=== PATIENT | female | born 1935 | race Caucasian/White ===

== ENCOUNTER 2020-02-02 14:59 | Inpatient (IN) | payer OTHER ==
[~2020-02-02] VITALS: Ht 162.6 cm; Wt 61.2 kg
[2020-02-02 15:14] VITALS: BP 101/53
[2020-02-02 16:01] LABS: BASOPHILS # (AUTO) 0.1 K/uL (0.00-0.22); EOSINOPHILS # (AUTO) 0.1 K/uL (0-0.4); EOSINOPHILS % (AUTO) 1.4 % (0.0-4.0); HEMATOCRIT 38.2 % (36-48); HEMOGLOBIN 12.5 g/dL (12.0-16.0); MEAN CORPUSCULAR HEMOGLOBIN 31 pg (27-31); MEAN CORPUSCULAR HGB CONC 33 g/dL (33-37); MEAN CORPUSCULAR VOLUME 93.3 fL (80-94); MONOCYTES # (AUTO) 0.5 K/uL (0.8-1.0); MONOCYTES % (AUTO) 7.3 % (1.7-9.3); NEUTROPHILS # (AUTO) 4.9 K/uL (1.8-7.7); NEUTROPHILS % (AUTO) 75.3 % (42.2-75.2); PLATELET COUNT (AUTO) 223 K/uL (140-450); RED BLOOD CELL COUNT(AUTO) 4.09 MIL/uL (4.20-5.40); RED CELL DISTRIBUTION WIDTH 13.7 % (11.6-13.7); WHITE BLOOD COUNT (AUTO) 6.5 K/uL (4.8-10.8)
--- NOTE | 2020-02-02 16:05 | NUR ---
DAUGHTER MICHELLE MCGREGOR [phone] FOR UPDATES ON PATIENT.
--- NOTE | 2020-02-02 16:10 | NUR ---
GILL FROM [facility] FOR GENERALIZED WEAKNESS, COUGH, LOSS OF APPETITE X 1 WEEK. AOX 1 ONLY LAST NAME. MED HX: HTN, ALZCHEIMER, CHEST SURGERY.
[2020-02-02 16:25] LABS: ANION GAP 9.9 (8-16); CARBON DIOXIDE 29.5 mmol/L (21-32); CHLORIDE 101 mmol/L (98-107); CREATININE 0.9 mg/dL (0.6-1.3); GLUCOSE 98 mg/dL (74-106); POTASSIUM 3.4 mmol/L (3.5-5.1); SODIUM SERUM 137 mmol/L (136-145); UREA NITROGEN, BLOOD 7 mg/dL (7-18)
[2020-02-02 16:32] LABS: ALBUMIN 3.2 g/dL (3.4-5.0); ASPARTATE AMINOTRANSFERASE 22 U/L (15-37); TOTAL BILIRUBIN 0.4 mg/dL (0.0-1.0)
[2020-02-02 16:36] LABS: BILIRUBIN,URINE NEGATIVE (NEGATIVE); BLOOD, URINE 2+ (NEGATIVE); COLOR,URINE ORANGE (YELLOW); LEUKOCYTE ESTERASE ,URINE TRACE (NEGATIVE); NITRITE, URINE NEGATIVE (NEGATIVE); PH,URINE 6.5 (5.0-9.0); UGLUCOSE NEGATIVE (NEGATIVE)
[2020-02-02 16:40] LABS: APPEARANCE,URINE HAZY (CLEAR)
[2020-02-02 16:55] LABS: RBC,URINE 0-5 /HPF (0-5); WBC,URINE 0-5 /HPF (0-5)
[2020-02-02] MEDS ORDERED: NACL 0.9% 1,000 ML IV ONE (17:10)
[2020-02-02] MEDS ORDERED: cefTRIAXone 1,000 MG VIAL ONE (17:15)
[2020-02-02] MEDS ORDERED: MORPHINE SULFATE 4 MG/ML SYR IVP ONE (18:50)
--- NOTE | 2020-02-02 19:12 | NUR ---
Pt report given to JESUSITA STERN. Transfer of care at this time.
--- NOTE | 2020-02-02 19:27 | NUR ---
RECEIVED REPORT FROM LEENA JHAVERI.
--- NOTE | 2020-02-02 19:27 | NUR ---
PT GIVEN 2L O2 VIA NC.
[2020-02-02] MEDS ORDERED: POTASSIUM CHLORIDE 10 MEQ TABER PO ONE ×2 (19:35→22:04)
[2020-02-02] MEDS ORDERED: ALBUTEROL SULFATE/IPRATROPIU 3 ML SOL IH PRN (19:35)
[2020-02-02] MEDS ORDERED: ACETAMINOPHEN 325 MG TAB PO PRN (19:35)
[2020-02-02] MEDS ORDERED: HYDROcodone/APAP 7.5/325 MG 1 TAB PO PRN (19:35)
[2020-02-02] MEDS ORDERED: ONDANSETRON 4 MG/2 ML VIAL IVP PRN (19:35)
[2020-02-02 20:30] VITALS: BP 115/75
--- NOTE | 2020-02-02 20:30 | NUR ---
RECEIVED BEDSIDE REPORT FROM ER NURSE. PT CAME IN [facility], NOT AMBULATORY. BREATHING EVEN AND UNLABORED WITH 2LPM O2 VIA NC. SKIN INTACT, WARM AND DRY TO TOUCH. IV SITE ON RH 22G, LAC 20G, PATENT, INTACT AND ASYMPTOMATIC. DX: GENERALIZED WEAKNESS. MRSA SWAB DONE, VS CHECKED, BED IN LOW POSITION, CALL LIGHT WITHIN REACH.
--- NOTE | 2020-02-02 20:32 | NUR ---
Patient will be admitted to care of DR SOLER. Admited to M/S. Will go to room 121B. Belongings list completed. Report to LEENA DE LA ROSA.
[2020-02-02 20:34] LABS: PROTHROMBIN TIME 10.1 secs (10.8-13.4)
[2020-02-02 20:37] LABS: FREE T4 (FREE THYROXINE) 1.33 ng/dL (0.76-1.46); PHOSPHORUS 3.7 mg/dL (2.5-4.9); THYROID STIMULATING HORMONE 2.17 uIU/mL (0.34-3.74)
[2020-02-02] MEDS ORDERED: MAGN400S60 PO (20:42)
[2020-02-02] MEDS ORDERED: FURO-570 PO (20:42)
[2020-02-02] MEDS ORDERED: POTA10TE30 PO (20:42)
[2020-02-02] MEDS ORDERED: MULT-153 PO (20:42)
[2020-02-02] MEDS ORDERED: ASPI-1822 PO (20:42)
[2020-02-02] MEDS ORDERED: MIRT15TA PO (20:42)
[2020-02-02] MEDS ORDERED: ASCO500T45 PO (20:42)
[2020-02-02] MEDS ORDERED: MEMA10TA PO (20:42)
[2020-02-02] MEDS ORDERED: SENN-74 PO (20:42)
[2020-02-02] MEDS ORDERED: CYAN100T65 PO ×2 (20:42→23:27)
[2020-02-02] MEDS ORDERED: PRON INH (20:42)
[2020-02-02] MEDS ORDERED: ACET-2619 PO (20:42)
[2020-02-02] MEDS ORDERED: [UNRECOGNIZED DRUG - CODE] PO (20:42)
[2020-02-02] MEDS ORDERED: CEPH250C16 PO (20:42)
[2020-02-02] MEDS: NACL 0.9% 1,000 ML IV SCH (22:00)
[2020-02-02] MEDS: DOCUSATE SODIUM 100 MG GELCAP PO SCH (22:13)
--- NOTE | 2020-02-02 22:22 | NUR ---
GIVEN K DUR, COLACE, AND HEPARIN MD ORDERED. PT TOLERATED WELL.
[2020-02-02] MEDS ORDERED: MAGNESIUM HYDROXIDE 2400 MG/30 ML UDC PO SCH (23:30)
[2020-02-03] VITALS: BP 99/55
--- NOTE | 2020-02-03 | NUR ---
VS WITHIN PT'S BASELINE. PT SLEEPING IN BED COMFORTABLY. NO ACUTE DISTRESS NOTED.
[2020-02-03] MEDS ORDERED: MAGNESIUM HYDROXIDE 2400 MG/30 ML UDC PO PRN (02:15)
--- NOTE | 2020-02-03 02:50 | NUR ---
PT SLEEPING IN BED COMFORTABLY. NO ACUTE DISTRESS NOTED.
--- NOTE | 2020-02-03 05:20 | NUR ---
PT SLEEPING IN BED COMFORTABLY. NO ACUTE DISTRESS NOTED.
[2020-02-03] MEDS ORDERED: ALBUTEROL SULFATE/IPRATROPIU 3 ML SOL IH SCH (06:00)
--- NOTE | 2020-02-03 06:50 | NUR ---
PT IN STABLE CONDITION, WILL ENDORSE PT TO DAY SHIFT NURSE FOR CONTINUOUS CARE.
[2020-02-03 06:56] LABS: CARBON DIOXIDE 24.4 mmol/L (21-32); CHLORIDE 107 mmol/L (98-107); CREATININE 0.8 mg/dL (0.6-1.3); GLUCOSE 98 mg/dL (74-106); POTASSIUM 4.4 mmol/L (3.5-5.1); SODIUM SERUM 140 mmol/L (136-145); UREA NITROGEN, BLOOD 7 mg/dL (7-18)
[2020-02-03 07:01] LABS: BASOPHILS # (AUTO) 0.1 K/uL (0.00-0.22); BASOPHILS % (AUTO) 0.8 % (0.0-2.0); EOSINOPHILS # (AUTO) 0.1 K/uL (0-0.4); EOSINOPHILS % (AUTO) 0.8 % (0.0-4.0); HEMATOCRIT 35.7 % (36-48); HEMOGLOBIN 11.8 g/dL (12.0-16.0); LYMPHOCYTES # (AUTO) 0.9 K/uL (2.5-16.5); LYMPHOCYTES % (AUTO) 12.8 % (20.5-51.1); MEAN CORPUSCULAR HEMOGLOBIN 31 pg (27-31); MEAN CORPUSCULAR HGB CONC 33 g/dL (33-37); MEAN CORPUSCULAR VOLUME 93.8 fL (80-94); MONOCYTES # (AUTO) 0.6 K/uL (0.8-1.0); MONOCYTES % (AUTO) 8.2 % (1.7-9.3); NEUTROPHILS # (AUTO) 5.3 K/uL (1.8-7.7); NEUTROPHILS % (AUTO) 77.4 % (42.2-75.2); PLATELET COUNT (AUTO) 206 K/uL (140-450); RED BLOOD CELL COUNT(AUTO) 3.81 MIL/uL (4.20-5.40); RED CELL DISTRIBUTION WIDTH 13.9 % (11.6-13.7); WHITE BLOOD COUNT (AUTO) 6.8 K/uL (4.8-10.8)
[2020-02-03 07:03] LABS: CHOL/HDL RATIO 3.8 (1-4.5); MAGNESIUM 1.9 mg/dL (1.8-2.4); PHOSPHORUS 2.8 mg/dL (2.5-4.9)
--- NOTE | 2020-02-03 07:15 | NUR ---
RECEIVED BEDSIDE REPORT FROM LOOM TECHNICIAN NURSE RJ FOR CONTINUITY OF CARE. PT IS ASLEEP ON BED AND AROUSABLE TO VOICE. RESPIRATION EVEN AND UNLABORED ON 2LPM VIA NC. FLACC 0. NO SIGNS OF DISTRESS NOTED. IV ON R HAND 22G, CLEAN AND INTACT, INFUSING NS AT 50 ML/HR. AND LAC 20G, SALINE LOCK. SKIN DRY AND CLEAN. SAFETY MEASURES IN PLACE. FALL RISK PROTOCOL IN PLACE AND BED ALARM ACTIVATED. BED IN LOW POSITION AND CALL LIGHT WITH REACH.
[2020-02-03 08:00] VITALS: BP 123/53
--- NOTE | 2020-02-03 08:36 | NUR ---
PATIENT HAS BEEN SCREENED AND CATEGORIZED HIGH NUTRITION RISK. PATIENT WILL BE SEEN WITHIN 1-2 DAYS OF ADMISSION. 02/03/20-02/04/[address]
[2020-02-03] MEDS ORDERED: CRUSHER, PILL MC ONE (08:53)
[2020-02-03] MEDS ORDERED: NON-FORMULARY ITEM (Cholecalciferol (Vitamin D3) (Vitamin D3) 1 TAB) PO SCH (09:00)
[2020-02-03] MEDS ORDERED: MIRTAZAPINE 15 MG TAB PO SCH ×2 (09:00→21:00)
[2020-02-03] MEDS: SENNA 8.6 MG TAB PO SCH ×2 (09:04→21:21)
[2020-02-03] MEDS: POTASSIUM CHLORIDE 10 MEQ TABER PO SCH (09:05)
[2020-02-03] MEDS: DOCUSATE SODIUM 100 MG GELCAP PO SCH ×2 (09:05→21:22)
[2020-02-03] MEDS: ASPIRIN 81 MG TAB.CHEW PO SCH (09:05)
[2020-02-03] MEDS: ASCORBIC ACID 500 MG TAB PO SCH (09:05)
[2020-02-03] MEDS: CYANOCOBALAMIN 1,000 MCG TAB PO SCH (09:06)
[2020-02-03] MEDS: MULTIVITAMIN 1 TAB PO SCH (09:06)
[2020-02-03] MEDS: MEMANTINE 10 MG TAB PO SCH ×2 (09:06→21:20)
[2020-02-03] MEDS: FUROSEMIDE 40 MG TAB PO SCH (09:06)
--- NOTE | 2020-02-03 09:09 | NUR ---
ADMINISTERED MEDS PER MD ORDER, MEDS ED PROVIDED AND REINFORCEMENT NEEDED, CRUSHED MEDS AND MIXED WITH APPLE SAUCE, PT TOLERATED WELL. DR. CISNEROS IS ASSESSING PT AT BEDSIDE. PT AWAKE AND WATCHING TV ON BED AT THIS TIME. RESPIRATION EVEN AND UNLABORED ON 2LPM VIA NC. NO SIGNS OF DISTRESS NOTED. SAFETY MEASURES IN PLACE. BED IN LOW POSITION AND CALL LIGHT WITHIN REACH. BED ALARM ACTIVATED.
--- NOTE | 2020-02-03 09:59 | NUR ---
Digital Specialist Note: Basic Screen: Yes High Risk DC Screen [place]: MICHELLE Ferris Relationship: DAUGHTER Pre-Admission Living Arrangements: SNF Other: [facility] Prior ADL Needs Assistance Current Home Health Name/Tel: N/A Current DME/02 Name/Tel: [employer] Current Hospice Name/Tel: N/A Current Dialysis Name/Tel: N/A Healthcare Decision Maker: Next of Kin Other: MICHELLE MCGREGOR - DAUGHTER Advance Directive No Physician Orders for Life Sustaining Treatment Form No Patient/Family Have Educational Needs No Discipline: Case Mgt/Social Svcs Tentative Discharge Plan/Destination: SNF/ECF Other: [facility] Will require assistance post discharge: No Referred to Manager Organizational: No Tentative Discharge Plan Summary: Patient is an 84-year-old female admitted for generalized weakness. Patient has PMHX of cardiac disorders, dementia, and hypertension. Patient was admitted from [facility] [phone]. SW contacted Silvina from [facility] who stated that patient is senior care and is currently on a bed hold. Patient needs assistance with ADLs and is alert but not oriented at baseline. Tentative discharge plan is for patient to return to [facility]. No further needs identified. Signature: VERONICA Frank Date: Feb 03, 2020 Time: 09:58
--- NOTE | 2020-02-03 11:11 | NUR ---
PT IS RESTING ON BED. RESPIRATION EVEN AND UNLABORED ON 2LPM VIA NC. FLACC 0. NO SIGNS OF DISTRESS NOTED. SAFETY MEASURES IN PLACE. BED IN LOW POSITION AND BED ALARM ACTIVATED.
--- NOTE | 2020-02-03 12:27 | NUR ---
INFLUENZA A & B NARES COLLECTED AND SENT TO LAB. PT FINISHED EATING LUNCH AND RESTING ON BED AT THIS TIME. NO SIGHS OF DISTRESS NOTED. SAFETY MEASURES IN PLACE. BED ALARM ACTIVATED.
[2020-02-03] MEDS: ALBUTEROL SULFATE/IPRATROPIU 3 ML SOL IH SCH ×2 (13:00→20:49)
--- NOTE | 2020-02-03 13:16 | NUR ---
PT IS RESTING ON BED AT THIS TIME. RESPIRATION EVEN AND UNLABORED ON 2LPM VIA NC. FLACC 0. NO SIGNS OF DISTRESS NOTED. SAFETY MEASURES IN PLACE. BED IN LOW POSITION AND CALL LIGHT WITHIN REACH. BED ALARM ACTIVATED.
--- NOTE | 2020-02-03 14:39 | NUR ---
02/03/20 RD INITIAL ASSESSMENT COMPLETED PLEASE REFER TO NUTRITION ASSESSMENT UNDER CARE ACTIVITY FOR ESTIMATED NUTRITIONAL NEEDS. 1. CONTINUE PUREE DIET TOLERATED 2. RECOMMEND ENSURE BID 3. CONTINUE TO PROVIDE ASSISTANCE WITH MEALS 4. RD TO FOLLOW-UP 2-3 DAYS, HIGH RISK LON MAR, RD
--- NOTE | 2020-02-03 15:14 | NUR ---
PT AWAKE AND WATCHING TV ON BED. NO ACUTE DISTRESS NOTED. SAFETY MEASURES IN PLACE. BED IN LOW POSITION AND CALL LIGHT WITHIN REACH. BED ALARM ACTIVATED.
[2020-02-03 16:00] VITALS: BP 101/56
--- NOTE | 2020-02-03 17:22 | NUR ---
ONSITE HEALTH COACH IS REPOSITIONING PT AND PT TOLERATED WELL. RESPIRATION EVEN AND UNLABORED ON 2LPM VIA NC. NO SIGNS OF DISTRESS NOTED. SAFETY MEASURES IN PLACE. BED IN LOW POSITION AND CALL LIGHT WITHIN REACH. BED ALARM ACTIVATED.
[2020-02-03] MEDS: NACL 0.9% 1,000 ML IV SCH (18:44)
--- NOTE | 2020-02-03 19:28 | NUR ---
ENDORSED PT AT BEDSIDE TO MILL OPERATOR NURSE SANTINO FOR CONTINUITY OF CARE. PT IS IN STABLE CONDITION. SAFETY MEASURES IN PLACE. BED ALARM ACTIVATED.
--- NOTE | 2020-02-03 19:30 | NUR ---
RECEIVED BEDSIDE REPORT FROM AM SHIFT NURSE. PATIENT IS LYING IN BED, AWAKE AND ALERT. NO SOB OR DISTRESS NOTED. IV ACCESS ON LEFT AC 20 GAUGE, SALINE LOCK AND RIGHT HAND 22 GAUGE, PATENT, INTACT AND INFUSING WELL. SKIN IS INTACT. BED IN LOW, SAFETY MEASURES IN PLACE. INITIAL ASSESSMENT DONE. CALL LIGHT PLACED WITHIN PATIENT REACH. WILL CONTINUE TO MONITOR PATIENT.
--- NOTE | 2020-02-03 22:15 | NUR ---
ROUNDS DONE. NO DISTRESS NOTED. CALL LIGHT WITHIN PATIENT REACH. WILL CONTINUE TO MONITOR PATIENT.
--- NOTE | 2020-02-04 00:20 | NUR ---
VITALS TAKEN AT THIS TIME. NO SOB OR DISTRESS NOTED. CALL LIGHT PLACED WITHIN PATIENT REACH. WILL CONTINUE TO MONITOR PATIENT.
[2020-02-04 00:23] VITALS: BP 106/66
--- NOTE | 2020-02-04 02:23 | NUR ---
ROUNDS DONE. NO DISTRESS NOTED. CALL LIGHT WITHIN PATIENT REACH. WILL CONTINUE TO MONITOR PATIENT.
--- NOTE | 2020-02-04 04:30 | NUR ---
ROUNDS DONE. VISIBLE CHEST RISE AND FALL NOTED. CALL LIGHT WITHIN PATIENT REACH. WILL CONTINUE TO MONITOR PATIENT.
[2020-02-04 06:18] LABS: BASOPHILS % (AUTO) 0.7 % (0.0-2.0); EOSINOPHILS # (AUTO) 0.1 K/uL (0-0.4); EOSINOPHILS % (AUTO) 2.1 % (0.0-4.0); HEMATOCRIT 35.1 % (36-48); HEMOGLOBIN 11.5 g/dL (12.0-16.0); LYMPHOCYTES # (AUTO) 1.4 K/uL (2.5-16.5); LYMPHOCYTES % (AUTO) 25.1 % (20.5-51.1); MEAN CORPUSCULAR HEMOGLOBIN 31 pg (27-31); MEAN CORPUSCULAR HGB CONC 33 g/dL (33-37); MEAN CORPUSCULAR VOLUME 92.9 fL (80-94); MONOCYTES # (AUTO) 0.6 K/uL (0.8-1.0); NEUTROPHILS # (AUTO) 3.3 K/uL (1.8-7.7); NEUTROPHILS % (AUTO) 61.1 % (42.2-75.2); PLATELET COUNT (AUTO) 203 K/uL (140-450); RED BLOOD CELL COUNT(AUTO) 3.78 MIL/uL (4.20-5.40); RED CELL DISTRIBUTION WIDTH 13.4 % (11.6-13.7); WHITE BLOOD COUNT (AUTO) 5.4 K/uL (4.8-10.8)
[2020-02-04 06:27] LABS: MAGNESIUM 1.7 mg/dL (1.8-2.4); PHOSPHORUS 2.7 mg/dL (2.5-4.9)
[2020-02-04 06:31] LABS: ANION GAP 12.5 (8-16); CHLORIDE 105 mmol/L (98-107); CREATININE 0.7 mg/dL (0.6-1.3); GLUCOSE 86 mg/dL (74-106); POTASSIUM 3.5 mmol/L (3.5-5.1); SODIUM SERUM 143 mmol/L (136-145); UREA NITROGEN, BLOOD 7 mg/dL (7-18)
--- NOTE | 2020-02-04 06:38 | NUR ---
PATIENT IN STABLE CONDITION. VISIBLE CHEST RISE AND FALL NOTED. NO SOB OR DISTRESS. CALL LIGHT WITHIN PATIENT REACH. WILL ENDORSE TO AM SHIFT NURSE FOR CONTINUITY OF CARE.
--- NOTE | 2020-02-04 07:21 | NUR ---
RECEIVED BEDSIDE REPORT FROM UNIT MANAGER RN RN. PATIENT IS LYING IN BED, AWAKE AND ALERT. NO SOB OR DISTRESS NOTED. IV ACCESS ON LEFT AC 20 GAUGE, SALINE LOCK AND RIGHT HAND 22 GAUGE, PATENT, INTACT AND INFUSING WELL. SKIN IS INTACT. BED IN LOW POSITION, SAFETY MEASURES IN PLACE. INITIAL ASSESSMENT DONE. CALL LIGHT PLACED WITHIN PATIENT REACH. WILL MONITOR PT THROUGHOUT THE SHIFT.
[2020-02-04] MEDS: ALBUTEROL SULFATE/IPRATROPIU 3 ML SOL IH SCH ×2 (07:29→13:02)
[2020-02-04 08:00] VITALS: BP 111/44
[2020-02-04] MEDS ORDERED: CHOLECALCIFEROL 1,000 IU TAB PO SCH (09:00)
--- NOTE | 2020-02-04 09:41 | NUR ---
ADMINISTERED MORNING MEDS TO PT. PT TOLERATED WELL. ALL NEEDS MET. WILL CONTINUE TO ROUND ON PT.
[2020-02-04] MEDS: ASPIRIN 81 MG TAB.CHEW PO SCH (09:52)
[2020-02-04] MEDS: CYANOCOBALAMIN 1,000 MCG TAB PO SCH (09:52)
[2020-02-04] MEDS: POTASSIUM CHLORIDE 10 MEQ TABER PO SCH (09:52)
[2020-02-04] MEDS: MEMANTINE 10 MG TAB PO SCH (09:52)
[2020-02-04] MEDS: DOCUSATE SODIUM 100 MG GELCAP PO SCH (09:52)
[2020-02-04] MEDS: ASCORBIC ACID 500 MG TAB PO SCH (09:52)
[2020-02-04] MEDS: FUROSEMIDE 40 MG TAB PO SCH (09:53)
[2020-02-04] MEDS: SENNA 8.6 MG TAB PO SCH (09:53)
[2020-02-04] MEDS: MULTIVITAMIN 1 TAB PO SCH (09:53)
--- NOTE | 2020-02-04 11:32 | NUR ---
PT RESTING IN BED WATCHING TV. ALL NEEDS MET. WILL CONTINUE TO ROUND ON PT.
[2020-02-04] MEDS ORDERED: MAGNESIUM OXIDE 400 MG TAB PO SCH (12:20)
[2020-02-04] MEDS ORDERED: ROC1PM IV (12:30)
[2020-02-04] MEDS ORDERED: LACT10CA1 PO (12:30)
--- NOTE | 2020-02-04 13:41 | NUR ---
PT ASLEEP. ALL NEEDS MET. WILL CONTINUE TO ROUND ON PT.
--- NOTE | 2020-02-04 14:23 | NUR ---
DC PLANNING PT WAS ADMITTED FROM [facility] WITH A DX UTI . PT HAS A HX OF LUNG CA METS, ALZHEIMER'S, DEMENTIA AND MAJOR DEPRESSION DISORDER. UA 1+ BACTERIA ADMINISTERED IV ROCEPHIN, CONSULTED WITH [facility]MO SEEN BY DR CISNEROS , DISCUSSED WITH THE FAMILY REGARDING THE POOR CANDIDATE FOR SURGERY AND THE CODE STATUS. DC PLAN STABLE TO GO BACK TO [facility] WITH IV ROCEPHIN. FAXED ALL THE PAPERWORK TO [facility] AND [facility] FOR TRANSPORT. WAITING FOR THE BED. CM TO FOLLOW. Addendum: 02/04/20 at 1655 by Belkys Samuels dc planning PT HAS A DC ORDER TOGO BACK TO [facility] CALLED [place] SPOKE WITH [facility] PT CAN GO TO ROOM 14 C # TO GIVE REPORT [phone] ARRANGED TRANSPORT WITH [facility] TIMBER INCISOR OPERATOR TIME 1837 NOTIFIED YON CHARGE NURSE
[2020-02-04] MEDS: NACL 0.9% 1,000 ML IV SCH (15:01)
--- NOTE | 2020-02-04 15:51 | NUR ---
PT ASLEEP. ALL NEEDS MET. NO SIGNS OF DISTRESS OR SOB NOTED. WILL CONTINUE TO ROUND ON PT.
[2020-02-04 16:00] VITALS: BP 96/51
--- NOTE | 2020-02-04 17:20 | NUR ---
CALLED [facility] AND GAVE REPORT TO LEENA BOLANOS. PT WILL BE GOING 14C. BRAILLE DUPLICATING MACHINE OPERATOR @ 4511.
--- NOTE | 2020-02-04 19:15 | NUR ---
PT DISCHARGED TO [facility] FOR CONTINUITY OF CARE. PT LEFT IN STABLE CONDITION. D/C PAPERWORK UNABLE TO BE SIGNED BY PT. ALL PERSONAL BELONGINGS GIVEN TO TRANSPORT TEAM. PT IVS LEFT IN FOR CONTINUATION OF IV ROCEPHIN FOR 10DAYS. PT LEFT IN STABLE CONDITION.
== END 2020-02-04 19:00 | DRG 204 ==
LOC: MED 14:59 → MTU 19:35
PROVIDERS: ADMIT Family Medicine; ATTEND Family Medicine
DX: R91.8 Other nonspecific abnormal finding of lung field (principal); N39.0 Urinary tract infection, site not specified; R62.7 Adult failure to thrive; F02.80 Dementia in other diseases classified elsewhere, unspecified severity, without behavioral disturbance, psychotic disturbance, mood disturbance, and anxiety; F32.9 Major depressive disorder, single episode, unspecified; E83.42 Hypomagnesemia; I10 Essential (primary) hypertension; K59.00 Constipation, unspecified; E87.6 Hypokalemia; J39.8 Other specified diseases of upper respiratory tract; G30.9 Alzheimer's disease, unspecified; Z68.23 Body mass index [BMI] 23.0-23.9, adult; Z79.899 Other long term (current) drug therapy
CPT/HCPCS: 36415; 71045; 71260; 80048; 80053; 81001; 82150; 83036; 83605; 83690; 83735; 83880; 84100; 84439; 84443; 84484; 85025; 85610; 85730; 87040; 87081; 87086; 87804; 93005; 94640; 96361; 96365; 97110; 97112; 97161-GP; 97530; 99285; J0696; J1644; J2270; J3420; J7030; J7060; Q0092; Q9967